=== PATIENT | female | born 1985 | race Caucasian/White ===

== ENCOUNTER 2023-10-27 22:57 | Emergency (ER) | payer OTHER ==
[~2023-10-27] VITALS: Ht 157.5 cm; Wt 68.2 kg
[2023-10-27 23:05] VITALS: TEMP 98.2
[2023-10-27] MEDS ORDERED: Ondansetron 4 MG/2 ML VIAL IV ONE (23:15)
[2023-10-27] MEDS ORDERED: NS 1,000 ML IV ONE (23:15)
[2023-10-27 23:44] LABS: BASO % 0.2 % (0.0-2.0); EOS % 0.5 % (0.0-4.0); GRAN % 61.2 % (42.2-75.2); HEMATOCRIT 40.7 % (37.0-47.0); LYMPH # 2.1 K/mm3 (1.2-3.4); LYMPH % 31.5 % (20.0-51.0); MEAN CELL VOLUME 83 fl (80.0-100.0); MEAN CORPUSCULAR HEMOGLOBIN 29 pg (27-31); MEAN CORPUSCULAR HGB CONC 34 g/dl (33.0-37.0); MEAN PLATELET VOLUME 10.3 fl (7.4-10.4); MONO # 0.4 K/mm3 (0.1-0.6); MONO % 6.4 % (1.7-9.3); PLATELET COUNT 244 K/mm3 (130-400); RED BLOOD COUNT 4.91 M/mm3 (4.10-5.30); REDCELL DISTRIBUTION WIDTH-CV 12.1 % (11.5-14.5)
[2023-10-28 00:01] LABS: ALBUMIN 4.1 g/dL (3.5-5.0); BILIRUBIN,TOTAL 0.4 mg/dL (0.2-1.2); CALCIUM 9.9 mg/dL (8.4-10.2); CREATININE, serum 0.79 mg/dL (0.57-1.11); POTASSIUM 3.6 mEq/L (3.5-4.5); TOTAL PROTEIN 7.7 g/dl (6.2-8.1)
[2023-10-28 00:06] LABS: COLLECTION METHOD CLEAN CATCH
[2023-10-28 00:07] LABS: URINE BLOOD NEGATIVE (NEGATIVE)
[2023-10-28 00:08] LABS: URINE APPEARANCE CLEAR (CLEAR/HAZY); URINE COLOR YELLOW (YELLOW); URINE GLUCOSE NEGATIVE (NEGATIVE); URINE KETONE NEGATIVE (NEGATIVE); URINE NITRATE NEGATIVE (NEGATIVE); URINE PROTEIN(semi-quant) NEGATIVE (NEGATIVE); URINE UROBILINOGEN 0.2 E.U/dL (0.2-1.0)
[2023-10-28] MEDS ORDERED: Iohexol 300 - 100 ML VIAL IV ONE (00:17)
[2023-10-28] MEDS ORDERED: NS 100 ML IV ONE (00:18)
[2023-10-28 01:29] VITALS: BP 107/57; PULSE 77
== END 2023-10-28 01:29 | disposition home or self-care (01) ==
LOC: COL.ER 22:57
PROVIDERS: Physician Assistant
DX: R10.11 Right upper quadrant pain (principal); K21.9 Gastro-esophageal reflux disease without esophagitis; Z79.899 Other long term (current) drug therapy
CPT/HCPCS: J2405; J7030; Q9967